=== PATIENT | male | born 1995 | race Two or more races ===

== ENCOUNTER 2022-01-10 08:41 | Emergency (ER) | payer OTHER ==
[2022-01-10 08:56] VITALS: RESP 18; TEMP 97.8; BMI 41.2
[2022-01-10] MEDS ORDERED: ACETAMINOPHEN 1000 MG/100 ML BAG IVPB ONE (11:00)
[2022-01-10] MEDS ORDERED: ALBUTEROL SO4 2.5/IPRATROPIUM 0.5 INH SOL 3 ML VIAL.NEB. NEB ONE ×2 (11:00→11:14)
[2022-01-10] MEDS ORDERED: ACETAMINOPHEN INJECTION 100 ML IVPB ONE (11:09)
[2022-01-10] MEDS ORDERED: predniSONE 20 MG TABLET (UD) PO ONE (11:19)
[2022-01-10] MEDS ORDERED: predniSONE 20 MG TABLET (UD) ONE (11:29)
[2022-01-10 11:52] LABS: BASO % 0.5 % (0-2.0); EOS % 3.1 % (0-4.5); HEMATOCRIT 44.8 % (35.4-49); HEMOGLOBIN 14.9 GM/dL (11.7-16.9); LYMPH % 13.1 % (8-40); MCH 28.4 pg (25.7-33.7); MCHC 33.2 g/dl (32.0-35.9); MEAN CELL VOLUME 85.7 fl (80-96); MEAN PLT VOLUME 7.6 fl (7.5-11.1); MONO % 10.7 % (3.8-10.2); NEUT % 72.6 % (42.8-82.8); PLATELET COUNT 297 10^3/uL (134-434); RBC 5.23 M/mm3 (4.00-5.60); RDW 14.4 % (11.9-15.9); WHITE BLOOD COUNT 7.8 K/mm3 (4.0-10.0)
[2022-01-10 11:56] LABS: EPI CELLS 11 /uL (0-25.1); HYALINE CASTS 1 /uL (0-3.1); PH,URINE 7.5 (5.0-8.0); URINE APPEARANCE CLEAR; URINE BACTERIA 3 /uL (0-1359); URINE BILIRUBIN NEGATIVE (NEGATIVE); URINE COLOR YELLOW; URINE GLUCOSE (UA) NEGATIVE (NEGATIVE); URINE KETONE NEGATIVE (NEGATIVE); URINE LEUK ESTERASE TRACE (NEGATIVE); URINE NITRITE NEGATIVE (NEGATIVE); URINE PROTEIN NEGATIVE (NEGATIVE); URINE RBC 7 /uL (0-23.9); URINE UROBILINOGEN 0.2 mg/dL (0.2-1.0); URINE WBC 37 /uL (0-25.8)
[2022-01-10 12:12] LABS: ALBUMIN 3.6 g/dl (3.4-5.0); BILIRUBIN,TOTAL 0.4 mg/dL (0.2-1); BLOOD UREA NITROGEN 7.5 mg/dL (7-18); CALCIUM 8.9 mg/dL (8.5-10.1); CREATININE 0.7 mg/dL (0.55-1.3); TOT PROT 7.1 g/dl (6.4-8.2)
[2022-01-10 14:27] VITALS: BP 130/80; PULSE 80
== END 2022-01-10 14:28 | disposition home or self-care (01) ==
LOC: JER 08:41
PROC: 3E033GC Introduction of Other Therapeutic Substance into Peripheral Vein, Percutaneous Approach (ICD-10-PCS; principal; 2022-01-10)
PROC: 3E0F7GC Introduction of Other Therapeutic Substance into Respiratory Tract, Via Natural or Artificial Opening (ICD-10-PCS; 2022-01-10)
DX: J45.901 Unspecified asthma with (acute) exacerbation (principal); R10.31 Right lower quadrant pain
CPT/HCPCS: 36415; 74177-TC; 80053; 81003; 83690; 85025; 87086; 99285-25; Q9967

== ENCOUNTER 2022-05-25 21:31 | Emergency (ER) | payer OTHER ==
[2022-05-25 21:38] VITALS: BP 133/68; PULSE 108; RESP 26; BMI 41.0
[2022-05-25] MEDS ORDERED: ACETAMINOPHEN 500 MG TABLET (FP) PO ONE (22:56)
[2022-05-25] MEDS ORDERED: ACETAMINOPHEN 325 MG TABLET (FP) ONE (23:11)
== END 2022-05-26 01:01 | disposition home or self-care (01) ==
LOC: JER 21:31
DX: J09.X2 Influenza due to identified novel influenza A virus with other respiratory manifestations (principal); R06.02 Shortness of breath
CPT/HCPCS: 0241U-QW; 71046-TC-FY; 82962; 93005; 93010; 99285-25